=== PATIENT | male | born 1965 | race Caucasian/White ===

== ENCOUNTER 2017-12-09 17:44 | Inpatient (IN) | payer SELFPAY ==
[~2017-12-09] VITALS: Ht 152.4 cm; Wt 137.4 kg
[2017-12-09] MEDS ORDERED: LOSA25TA12 PO (17:52)
[2017-12-09] MEDS ORDERED: METF500T4 PO (17:52)
[2017-12-09] MEDS ORDERED: SODIUM CHLORIDE 0.9% 1,000 ML IV ONE (19:00)
[2017-12-09] MEDS ORDERED: ONDANSETRON HCL 4MG/2ML VIAL IV ONE (19:00)
[2017-12-09] MEDS ORDERED: PANTOPRAZOLE SODIUM 40 MG/VIAL IV ONE (19:15)
[2017-12-09 19:17] LABS: BASOPHILS % 0.3 % (0.0-2.0); EOSINOPHILS % 0.4 % (0.0-5.0); LYMPHOCYTES % 10.5 % (20.0-50.0); MEAN CORPUSCULAR HEMOGLOBIN 28.7 pg (28.0-32.0); MEAN CORPUSCULAR VOLUME 85.5 fL (80.0-94.0); MEAN PLATELET VOLUME 7.6 fl (7.4-10.4); NEUTROPHILS % 81.8 % (40.0-76.0); PLATELET 116 x1000/uL (130-400); RED BLOOD CELL COUNT 1.67 mill/uL (4.7-6.1)
[2017-12-09 19:23] LABS: HEMATOCRIT. 14.3 % (42.0-52.0); HEMOGLOBIN. 4.8 g/dL (14.0-18.0)
[2017-12-09 19:24] LABS: INR 1.2; PROTHROMBIN TIME 12.5 sec (9.4-11.6)
[2017-12-09 19:28] LABS: CHLORIDE 111 mEq/L (98-107)
[2017-12-09 19:35] LABS: TROPONIN I < 0.02 ng/mL (0.00-0.04)
[2017-12-10] VITALS (22 sets, daily range): BP systolic 89–128; BP diastolic 49–75
[2017-12-10] MEDS ORDERED: ONDANSETRON HCL 4MG/2ML VIAL IV PRN (02:15)
[2017-12-10] MEDS ORDERED: PANTOPRAZOLE 40MG DR TABLET PO SCH (07:30)
[2017-12-10] MEDS: LOSARTAN POTASSIUM 25 MG TABLET PO SCH (08:28)
[2017-12-10] MEDS ORDERED: BACTERIOSTATIC SODIUM CHLORIDE 0.9% 30ML VIAL IJ ONE (10:50)
[2017-12-10] MEDS ORDERED: FENTANYL CITRATE/PF 50MCG/ML 2ML VIAL ONE (14:40)
[2017-12-10] MEDS ORDERED: MIDAZOLAM HCL 5 MG/5 ML VIAL ONE (14:40)
[2017-12-10] MEDS ORDERED: MIDAZOLAM HCL 5 MG/5 ML VIAL IV PRN (14:42)
[2017-12-10] MEDS ORDERED: FENTANYL CITRATE/PF 50MCG/ML 2ML VIAL IV PRN (14:43)
[2017-12-10] MEDS ORDERED: METFORMIN HCL 500MG SR TABLET 24HR PO SCH (17:00)
[2017-12-10] MEDS: PROPRANOLOL HCL 20MG TABLET PO SCH (17:20)
[2017-12-10 17:59] LABS: MEAN CORPUSCULAR VOLUME 85.1 fL (80.0-94.0); PLATELET 91 x1000/uL (130-400); RED BLOOD CELL COUNT 2.27 mill/uL (4.7-6.1)
[2017-12-10 18:02] LABS: HEMOGLOBIN 6.6 g/dL (14.0-18.0)
[2017-12-10 18:03] LABS: HEMATOCRIT 19.3 % (42.0-52.0)
[2017-12-10 18:09] LABS: TOTAL IRON BINDING CAPACITY 305 ug/dL (250-450)
[2017-12-10 18:40] LABS: FOLIC ACID (FOLATE) SERUM 14.5 ng/mL (>5.38)
[2017-12-10] MEDS ORDERED: IOHEXOL-350 100 ML BOTTLE ONE (19:57)
[2017-12-10] MEDS ORDERED: PANTOPRAZOLE SODIUM 40 MG/VIAL IV SCH (21:00)
[2017-12-11] VITALS (11 sets, daily range): BP systolic 48–116; BP diastolic 15–66
[2017-12-11 02:48] LABS: HEMATOCRIT 22.7 % (42.0-52.0); HEMOGLOBIN 7.7 g/dL (14.0-18.0)
[2017-12-11 07:29] LABS: HEMATOCRIT 21.8 % (42.0-52.0); HEMOGLOBIN 7.3 g/dL (14.0-18.0)
[2017-12-11] MEDS ORDERED: OMEPRAZOLE 20MG CAPSULE EXTENDED RELEASE PO SCH (07:30)
[2017-12-11] MEDS: PROPRANOLOL HCL 20MG TABLET PO SCH ×2 (08:11→12:38)
[2017-12-11] MEDS: LOSARTAN POTASSIUM 25 MG TABLET PO SCH (08:12)
[2017-12-11] MEDS ORDERED: PROP20TA7 PO (10:41)
[2017-12-11] MEDS ORDERED: FE300LUD PO (10:41)
[2017-12-11] MEDS ORDERED: OMEP20CA10 PO (10:41)
[2017-12-11] MEDS ORDERED: FERROUS SULFATE 300MG/5ML UDC PO SCH (13:00)
[2017-12-11 16:29] LABS: HEMATOCRIT 25.5 % (42.0-52.0); HEMOGLOBIN 8.9 g/dL (14.0-18.0)
[2017-12-11 16:53] LABS: AMMONIA 64 uMol/L (<32)
[2017-12-11 20:42] LABS: HEPATITIS B SURFACE ANTIGEN NEGATIVE
[2017-12-11] MEDS ORDERED: ASCORBIC ACID 500 MG TABLET PO SCH (21:00)
[2017-12-11 21:11] LABS: HEPATITIS B CORE AB IGM NEGATIVE
[2017-12-11 21:12] LABS: HEPATITIS A AB IGM NEGATIVE (NEGATIVE)
== END 2017-12-11 16:47 | disposition home or self-care (01) | DRG 253 ==
LOC: ER 17:57 → 5EST 19:56 → EDBEDREQ 20:03 → ENRESERV 22:45
PROVIDERS: ADMIT Internal Medicine; ATTEND Internal Medicine
PROC: 30233N1 Transfusion of Nonautologous Red Blood Cells into Peripheral Vein, Percutaneous Approach (ICD-10-PCS; 2017-12-09)
PROC: 0DJ08ZZ Inspection of Upper Intestinal Tract, Via Natural or Artificial Opening Endoscopic (ICD-10-PCS; principal; 2017-12-10 14:00)
DX: K92.2 Gastrointestinal hemorrhage, unspecified (principal); E43 Unspecified severe protein-calorie malnutrition; D68.4 Acquired coagulation factor deficiency; D69.6 Thrombocytopenia, unspecified; E83.52 Hypercalcemia; K74.60 Unspecified cirrhosis of liver; Z68.43 Body mass index [BMI] 50.0-59.9, adult; E66.01 Morbid (severe) obesity due to excess calories; D64.9 Anemia, unspecified; E11.9 Type 2 diabetes mellitus without complications; I85.00 Esophageal varices without bleeding; E61.1 Iron deficiency; F10.10 Alcohol abuse, uncomplicated; I10 Essential (primary) hypertension; I86.4 Gastric varices; Z87.891 Personal history of nicotine dependence
CPT/HCPCS: 36415; 36430; 71045; 74174; 80053; 82140; 82607; 82728; 82746; 82962; 83540; 83550; 83690; 84484; 85014; 85018; 85025; 85027; 85610; 86705; 86709; 86803; 86850; 86900; 86920; 87340; 93005; 96365; 96375; 99291; C9113; J2250; J2405; J3010; J3490; J7030; J7050; P9016; Q9967